=== PATIENT | male | born 1980 | race Caucasian/White ===

== ENCOUNTER 2024-05-25 02:43 | Emergency (ER) | payer OTHER, SELFPAY ==
[2024-05-25 02:47] VITALS: BP 127/73
[2024-05-25 03:10] VITALS: BMI 36.5
[2024-05-25 03:18] LABS: % Basophils 0.3 % (0-2); % Eosinophils 0.7 % (0-6); % Immature Granulocytes 0.5 % (0-0.5); % Lymphocytes 10.1 % (20.5-51.1); % Monocytes 5.5 % (1.7-9.3); % Neutrophils 82.9 % (42.2-75.2); Absolute Eosinophils 0.1 10^3/uL (0-0.7); Absolute Immature Granulocytes 0.1 10^3/uL (0-0.05); Absolute Monocytes 0.6 10^3/uL (0.1-0.6); Absolute Neutrophils 8.3 10^3/uL (1.4-6.5); Hemoglobin 13.4 g/dL (13.0-18.0); Mean Corp Hgb Conc. 35.3 g/dL (33.0-37.0); Mean Corpuscular Hgb 29.6 pg (27.0-31.0); Mean Corpuscular Volume 83.9 fL (80.0-94.0); Mean Platelet Volume 10.3 fL (7.4-10.4); Nucleated Red Blood Cells % 0 % (-); Platelet Count 204 10^3/uL (130-400); Red Blood Cell Count 4.53 10^6/uL (4.70-6.10); Red Cell Dist. Width 12.5 % (11.5-14.5)
[2024-05-25 03:28] LABS: ALT (SGPT) 35 U/L (0-50); AST (SGOT) 28 U/L (17-59); Albumin 3.6 g/dl (3.5-5.0); Alkaline Phosphatase 105 U/L (38-126); Blood Urea Nitrogen 14 mg/dl (9-20); Calcium 8.2 mg/dl (8.4-10.2); Carbon Dioxide 22 mmol/L (22-30); Chloride 104 mmol/L (98-107); Estimated Creatinine Clearance > 125 ml/min; Glucose 128 mg/dl (70-99); Potassium 3.8 mmol/L (3.5-5.1); Sodium 136 mmol/L (135-145); Total Protein 6.1 g/dl (6.3-8.2); eGFR > 60.00
[2024-05-25 03:35] LABS: COVID-19 Antigen Negative (Negative)
[2024-05-25] MEDS: NSS 1000 IV (03:53)
[2024-05-25 04:00] VITALS: BP 105/73
--- NOTE | 2024-05-25 05:16 | ED.GENMED ---
History of Present Illness
General
Chief Complaint: Cold/Flu/URI Symptoms
Time Seen by Provider: 05/25/24 03:16
History of Present Illness
History of Present Illness:
Pleasant 44-year-old male presents to the emergency department with fever, chills, cough, diarrhea. called 911 because patient appeared weak. He has been taking Advil and Tylenol as directed. Symptoms began about a week ago. He has been
able to drink. Denies any abdominal pain. He does have a history of diverticulitis.
Past History
Past History
ED Past Medical History: HTN and Other (chronic back pain)
ED Past Surgical History: Other (dental)
Social History
Personal:
Living: with family
Employment: Employed
Phy Exam
Physical Exam
Physical Exam:
Physical Exam
Vital signs and allergy list reviewed and agreed with.
GENERAL: Alert , in minimal apparent distress
EYE: pupils equal, EOMI, anicteric
NECK: Supple, no significant adenopathy. No masses. Trachea midline
ENT: Oropharynx is clear, mmm.
CARDIAC: Regular rate and rhythm . No M/R/G
LUNGS: Clear breath sounds bilaterally, no acute respiratory distress, no wheezes/rales/rhonchi
ABDOMEN: Soft, without focal tenderness to deep or superficial palpation, no r/g, no cvat. Normal BSx4q
NEUROLOGICAL: Alert and oriented, no focal neuro deficits
SKIN: Warm and dry, skin intact.
MUSCULOSKELETAL: No edema, well perfused. Moves all 4 extremities
PSYCH: Normal and appropriate interaction.
Sepsis
Sepsis Screening
Sepsis Assessment: Sepsis Ruled Out
Sepsis Screen
Sepsis Screen: Sepsis Ruled Out
Date: 05/25/24
Time: 06:49
Course
Orders/Labs/Results
Orders:
Orders
05/25/24 02:53
COVID-19 Antigen Urgent
Source: Nasal Swab
Influenza A+B Rapid Molecular Urgent
EMILY Source: Nasal Swab
Specimen Description:
05/25/24 03:07
Complete Blood Count/With Diff Urgent
Comprehensive Metabolic Panel Urgent
05/25/24 03:16
0.9% Sodium Chloride 1000 ml [Nss] 1,000 ml IV BOLUS
05/25/24 03:56
CT Abd/Pel (IV only)-DH only Urgent
Comment: hx of diverticulitis with high fevers
Reason For Exam: diarrhea
05/25/24 05:50
Amoxicillin 875 mg/Clav 125 mg [Augmentin 875 mg/125 mg] 1 tablet PO NOW STA
Abnormal Lab Results
05/25/24
03:07
RBC 4.53 L 10^6/uL
(4.70-6.10)
Hct 38.0 L %
(39.0-52.0)
Abs Immat Gran (auto) 0.1 H 10^3/uL
(0-0.05)
Absolute Neuts (auto) 8.3 H 10^3/uL
(1.4-6.5)
Absolute Lymphs (auto) 1.0 L 10^3/uL
(1.2-3.4)
Neutrophils % 82.9 H %
(42.2-75.2)
Lymphocytes % 10.1 L %
(20.5-51.1)
Glucose 128 H mg/dl
(70-99)
Calcium 8.2 L mg/dl
(8.4-10.2)
Total Protein 6.1 L g/dl
(6.3-8.2)
05/25/24 03:07
05/25/24 03:07
Vital Signs
Initial and Last Documented VS:
Initial Vital Signs
Temp Pulse Resp BP Pulse Ox
103.0 F H 110 18 127/73 94
05/25/24 02:47 05/25/24 02:47 05/25/24 02:47 05/25/24 02:47 05/25/24 02:47
Last Documented Vital Signs
Temp Pulse Resp BP Pulse Ox
98.3 F 82 18 108/65 99
05/25/24 06:07 05/25/24 06:07 05/25/24 06:07 05/25/24 06:07 05/25/24 06:07
*Critical Care Note
Total Time (30-74mins, 75-104mins- exclusive of procedures): Not Applicable
Update Note
Update Note:
IMPRESSION:
Mild acute sigmoid diverticulitis. No perforation or abscess.
Normal appendix. No bowel obstruction. No free air.
No obstructive uropathy.
No concerning bone finding.
ED Attending Note
-
Portions of this chart may have been created with voice recognition software.� Occasional wrong word or��sound alike� substitutions may have occurred due to the inherent limitations of voice recognition software.
Discharge Plan
Departure
Patient Disposition: Home (Routine Discharge)
Date of Disposition: 05/25/24
Time of Disposition: 05:46
Patient with high blood pressure during this ER visit?: No
Condition: Good
Discharge Problem:
Diverticulitis, Viral syndrome
Instructions: Diverticulitis, Fever, Adult (DC), Viral Syndrome (DC), BLOOD PRESSURE
Prescriptions:
New
amoxicillin-pot clavulanate 875-125 mg tablet
1 tab PO BID Qty: 20 0RF
No Action
tramadol 50 MG tablet
50 mg PO Q6HPRN PRN (Reason: pain)
diazepam 5 MG tablet
10 mg PO TIDPRN PRN (Reason: pain)
escitalopram oxalate 20 MG tablet
20 mg PO DAILY
Referrals:
Matt Villafana DO [Family Provider] -
Activity Restrictions/Additional Instructions:
It was a pleasure meeting you and taking part in your care. We hope for your continued healing and wellness.
Please read discharge instructions in their entirety. However, they are for general education and may not describe your exact diagnosis at discharge. Information on your ER visit and medical conditions were discussed with you along with appropriate
follow up information...
If indicated, please take your medications as instructed and indicated on discharge paperwork.
Please schedule a follow up appointment as directed. Call to schedule an appointment
Please return to the emergency department with ANY change in, persisting, or worsening of symptoms. If any of your symptoms do not improve, or persist, or become more severe within 6-12 hours, please return to the emergency department for further
care.
Please return to the emergency department if you develop a headache, neck pain/stiffness, fever greater than 100.4F, chest pain, shortness of breath, persistent nausea, vomiting, slurred speech, difficulty walking, numbness/tingling, weakness, signs
of infection or any other symptoms that are worrisome to you.
If you have any questions or concerns please do not hesitate to call the Hospital at or E-mail me directly at [email or web address]
Interventions
Interventions:
*Risk Screen - Suicide Last Done: 05/25/24 02:47
*General Assessment Last Done: 05/25/24 02:47
*Neglect/Abuse Screening Last Done: 05/25/24 02:47
ED- Fall Risk Assessment Last Done: 05/25/24 02:47
*ED COVID-19 Vaccine History Last Done: 05/25/24 02:47
*Nursing Disposition Last Done: 05/25/24 06:20
ED- Pulmonary Assessment Last Done: 05/25/24 03:10
Discharge Date and Time
Print Language: MONGOLIAN
[2024-05-25 06:07] VITALS: BP 108/65
[2024-05-25] MEDS: AUGMENTIN 875 MG/125 MG 1 TABLET PO (06:13)
== END 2024-05-25 07:12 | disposition home or self-care (01) ==
LOC: EMR 02:43
PROVIDERS: EMERGENCY PHYSICIAN Student in an Organized Health Care Education/Training Program; FAMILY PHYSICIAN Family Medicine
DX: K57.32 Diverticulitis of large intestine without perforation or abscess without bleeding (principal); B34.9 Viral infection, unspecified; I10 Essential (primary) hypertension
CPT/HCPCS: 99284; 96360; 74177; 80053; 85025; 87502; 87811; Q9967